=== PATIENT | male | born 1995 | race African-American/Black ===

== ENCOUNTER 2016-06-09 19:15 | Emergency (ER) | payer OTHER ==
[2016-06-09 19:20] VITALS: BP 146/77
--- NOTE | 2016-06-09 19:40 | ED GENERAL ADULT ---
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 REPORTS NO SYMPTOMS NO KNOWN EXPOSURE. Triage Nurses Notes Reviewed? yes Onset: Gradual Duration: constant Timing: recent history Severity: mild Severity Numbers: 1 HPI: Patient is a 20-year-old male who presents emergency and that on Sunday patient had unprotected sex with a female in which since he's concerned that he has an STD. Patient complains of generalized mild testicular discomfort however denies any fever chills abdominal pain nausea vomiting testicular swelling penile lesions or penile discharge dysuria or hematuria. Patient is able tolerate by mouth. (JLUIS FARLEY) Past History Travel History Traveled to [place] past 21 day No Medical History Any Pertinent Medical History? none Neurological: NONE Cardiovascular: NONE Respiratory: NONE Gastrointestinal: NONE Hepatic: NONE Renal: NONE Musculoskeletal: NONE Psychiatric: NONE Endocrine: NONE Surgical History Surgical History: non-contributory Psychosocial History What is your primary language Cymro Tobacco Use: Never used Family History Hx Contributory? No (JLUIS FARLEY) Review of Systems Review of Systems Constitutional: Reports: no symptoms. EENTM: Reports: no symptoms. Respiratory: Reports: no symptoms. Cardiovascular: Reports: no symptoms. GI: Reports: no symptoms. Genitourinary: Reports: see HPI, pain. Denies: discharge, dysuria, frequency. Musculoskeletal: Reports: no symptoms. Skin: Reports: no symptoms. Neurological/Psychological: Reports: no symptoms. Hematologic/Endocrine: Reports: no symptoms. Immunologic/Allergic: Reports: no symptoms. All Other Systems: Reviewed and Negative (JLUIS FARLEY) Physical Exam Physical Exam General Appearance: no apparent distress, alert Head: atraumatic Eyes: Bilateral: normal appearance. Ears, Nose, Throat: hearing grossly normal Gastrointestinal: normal bowel sounds, soft, non-tender Extremities: normal inspection, normal capillary refill, normal range of motion Neurologic/Psych: no motor/sensory deficits Skin: intact, normal color, warm/dry Lymphatic: no anterior cervical genoveva Comments: normal inspection no active discharge no swelling of testicle nontender testicle cremaster reflex intact no mass noted skin normal on exam no lesions no swelling no discharge Core Measures ACS in differential dx? No CVA/TIA Diagnosis: No Severe Sepsis Present: No Septic Shock Present: No (JLUIS FARLEY) Progress Differential Diagnoses I considered the following diagnoses in my evaluation of the patient: [ Epididymitis, hydrocele, testicular torsion, gonorrhea, chlamydia, HIV, STD] Plan of Care: Orders Procedure Date/time Status CULTURE,URINE 06/09 1952 Active CHLAMYDIA-GC DNA PROBE 06/09 1952 Active URINALYSIS 06/09 1952 Complete Laboratory Tests 06/09/161953: Urine Color YEL, Urine Clarity CLEAR, Urine pH 6.0, Ur Specific George >= 1.030 , Urine Protein TRACE H, Urine Ketones NEG, Urine Nitrite NEG, Urine Bilirubin NEG, Urine Urobilinogen 1.0, Ur Leukocyte Esterase NEG, Ur Microscopic SEDIMENT EXAMINED, Urine RBC 1-3, Urine Mucus MOD H, Urine Hemoglobin NEG, Urine Glucose NEG Microbiology 06/09 1953 URINE ROUT: GC DNA Probe - RECD 06/09 1953 URINE ROUT: Chlamydia DNA Probe ([facility]) - RECD 06/09 1953 URINE ROUT: Urine Culture - RECD Patient currently is in no apparent distress cremasteric reflex was intact no concerns of testicular torsion patient will be prophylactically treated for gonorrhea and chlamydia. Patient was strongly advised to follow up as instructed and discharged in plan and he will comply Patient was strongly advised to not PARTICIPATE IN SEXUAL ACTIVities until results are known and to follow up with primary care doctor as directed. urinary analysis was unremarkable (JLUIS FARLEY) Initial ED EKG: none (JLUIS FARLEY) Departure Departure Disposition: HOME OR SELF CARE Condition: Stable Clinical Impression Primary Impression: Sexually transmissible disease Referrals: HINA ECHOLS,KUMAR Crawley (PCP/Family) Additional Instructions: As discussed you have been treated prophylactically with antibiotics in the emergency room. Please do not PARTICIPATE IN sexual activities until you results are known and if positive please tell your partner and follow-up with your primary care doctor in 1 week. If symptoms worsen return to emergency room. Please always practice safe sex PRECAUTIONS Departure Forms: Customer Survey General Discharge Information Prescriptions: Current Visit Scripts No Known Home Medications (JLUIS FARLEY) PA/JD [employer] CONSULTANT Co-Sign Statement Statement: ED Attending supervision documentation- [] I saw and evaluated the patient. I have also reviewed all the pertinent lab results and diagnostic results. I agree with the findings and the plan of care as documented in the PA's/JD EDWARDS CONSULTANT's documentation. [x] I have reviewed the ED Record and agree with the PA's/JD EDWARDS CONSULTANT's documentation. [] Additions or exceptions (if any) to the PAs/JD EDWARDS CONSULTANT's note and plan are summarized below: [] (BRIGIDA ECHOLS,NIVIA Nelson) Critical Care Note Critical Care Note Critical Care Time: non-applicable (JLUIS FARLEY)
== END 2016-06-09 20:37 ==
LOC: ERH 19:15
DX: A64 Unspecified sexually transmitted disease (principal)
CPT/HCPCS: 81001; 87086; 87491; 87591; 96372; J0456; J0696